=== PATIENT | female | born 1990 | race Caucasian/White ===

== ENCOUNTER 2019-06-10 19:00 | Inpatient (IN) ==
[2019-06-10] MEDS ORDERED: OXYTOCIN 30 UNITS/500 ML BAG IV PRN (19:35)
[2019-06-10] MEDS ORDERED: DINOPROSTONE 10 MG INSERT PV ONE (19:35)
[2019-06-10 20:10] LABS: Hematocrit (blood only) 38.2 % (37-47); Hemoglobin 12.8 g/dL (12.0-16.0); Mean Corpuscular Hemoglobin 30.8 pg (25-34); Mean Corpuscular Volume 91.8 fL (80-100); Mean Platelet Volume 11.1 fL (7.4-10.4); Platelet Count 182 K/uL (130-400); RDW Coefficient of Variation 14.2 % (11.5-14.5); RDW Standard Deviation 46.6 fL (36.4-46.3); Red Blood Count 4.16 M/uL (4.2-5.4); White Blood Count 11.12 K/uL (4.8-10.8)
[2019-06-10 20:14] LABS: Mean Corpuscular Hgb Conc 33.5 g/dL (32-36)
--- NOTE | 2019-06-10 20:38 | Obstetrical Progress Note ---
Date of Service June 10, 2019 Assessment & Plan Admission and Anticipated Discharge Date Admission Date: June 10, 2019 Subjective Met pt and spouse Reviewed PNC FHR; CAT1 Ctx: Absent VE; closed/post.thick /-3 Cervidil inserted in vagina Results & Data ([facility]) Vital Signs (Past 12 Hours) Vital Signs Temp Pulse Resp BP 06/10/19 19:27 36.9 C 06/10/19 19:11 73 18 139/82 06/10/19 19:09 73 139/82
[2019-06-11] MEDS ORDERED: Nursing to Pharmacy Communication ONE (01:21)
[2019-06-11] MEDS: miSOPROStoL 25 MCG TAB PO SCH ×5 (01:26→18:30)
[2019-06-11] MEDS: BUTORPHANOL TARTRATE 1 MG/ML VIAL IV PRN ×2 (01:27→04:59)
[2019-06-11] MEDS ORDERED: miSOPROStoL 25 MCG TAB PO SCH (04:00)
[2019-06-11] MEDS ORDERED: OXYTOCIN 30 UNITS/500 ML BAG IV PRN (10:03)
--- NOTE | 2019-06-11 10:06 | Obstetrical Progress Note ---
Date of Service June 11, 2019 Assessment & Plan Admission and Anticipated Discharge Date Admission Date: June 10, 2019 Physical Exam Genitourinary: Manual OB Exam: + cervical dilation 2 cm, + cervical effacement 80%, + station high and + amniotic fluid clear OB Exam Monitor Tracing: + external FHT monitor used, + external uterine monitor used, + category I and + normal FHT variability EFW 7-7.5 lbs. Will start Oxytocin to augment contractions Epidural planned Results & Data ([facility]) Vital Signs (Past 12 Hours) Vital Signs Temp Pulse Resp BP 06/11/19 09:03 36.5 C 74 20 132/85 06/11/19 07:09 72 127/82 06/11/19 07:00 36.9 C 18 06/11/19 05:14 36.8 C 18 06/11/19 03:30 37.0 C 18 06/11/19 01:30 36.8 C 18 06/10/19 22:22 36.7 C 68 18 130/77
[2019-06-11] MEDS: LACTATED RINGER'S 1,000 ML IV PRN ×4 (10:09→19:17)
[2019-06-11] MEDS ORDERED: ePHEDrine sulfate 50 MG/ML AMP ONE (10:20)
[2019-06-11] MEDS ORDERED: fentaNYL 2MCG/ML ROPIV 1.25MG/ML 100 ML BAG EPI ONE (10:21)
[2019-06-11] MEDS ORDERED: BUPIVACAINE 0.25% 30 ML VIAL ONE ×2 (10:21→15:27)
[2019-06-11] MEDS ORDERED: fentaNYL citrate 100 MCG/2 ML VIAL ONE ×3 (10:21→20:54)
[2019-06-11] MEDS ORDERED: ONDANSETRON INJ 2 MG/ML 2 ML VIAL IV PRN ×2 (12:11→21:35)
[2019-06-11] MEDS ORDERED: NALOXONE HCL 1 MG in SODIUM CHLORIDE 0.9% 1000ML 1,000 ML IV PRN ×2 (12:11→21:35)
[2019-06-11] MEDS ORDERED: ePHEDrine sulfate 50 MG/ML AMP IV PRN ×2 (12:11→21:35)
[2019-06-11] MEDS ORDERED: DiphenhydrAMINE HCL 50 MG/ML VIAL IV PRN ×3 (12:12→21:35)
[2019-06-11] MEDS ORDERED: NALOXONE HCL 0.4 MG/1 ML VIAL/CARP IV PRN ×2 (12:12→21:35)
[2019-06-11] MEDS ORDERED: NALBUPHINE HCL INJ 10 MG/ML AMP IV PRN ×2 (12:12→21:35)
[2019-06-11] MEDS ORDERED: fentaNYL 2MCG/ML ROPIV 1.25MG/ML 100 ML BAG EPI PRN (12:14)
--- NOTE | 2019-06-11 14:08 | Obstetrical Progress Note ---
Date of Service June 11, 2019 Assessment & Plan Admission and Anticipated Discharge Date Admission Date: June 10, 2019 Physical Exam Genitourinary: Manual OB Exam: + cervical dilation 4 cm, + cervical effacement 90% and + station -2 OB Exam Monitor Tracing: + external FHT monitor used, + external uterine monitor used, + category I and + normal FHT variability Results & Data ([facility]) Vital Signs (Past 12 Hours) Vital Signs Temp Pulse Resp BP Pulse Ox 06/11/19 14:02 104 H 100 06/11/19 13:57 93 H 100 06/11/19 13:54 80 117/71 06/11/19 13:52 92 H 100 06/11/19 13:47 97 H 100 06/11/19 13:42 98 H 100 06/11/19 13:38 91 H 119/71 06/11/19 13:37 80 100 06/11/19 13:32 89 100 06/11/19 13:27 95 H 100 06/11/19 13:23 80 113/65 06/11/19 13:22 89 100 06/11/19 13:17 110 H 100 06/11/19 13:12 87 100 06/11/19 13:08 100 H 123/84 06/11/19 13:07 75 100 06/11/19 13:02 106 H 100 06/11/19 12:57 79 100 06/11/19 12:53 36.5 C 82 20 121/79 06/11/19 12:52 88 100 06/11/19 12:47 83 100 06/11/19 12:42 98 H 99 06/11/19 12:39 100 H 125/73 06/11/19 12:37 73 100 06/11/19 12:32 85 100 06/11/19 12:27 91 H 99 06/11/19 12:24 92 H 117/85 06/11/19 12:22 90 100 06/11/19 12:17 92 H 100 06/11/19 12:12 80 99 06/11/19 12:08 86 113/62 06/11/19 12:07 90 100 06/11/19 12:02 83 100 06/11/19 11:57 99 H 100 06/11/19 11:53 93 H 108/64 90 06/11/19 11:52 95 H 100 03/18/20 11:47 90 100 20 11:42 102 H 100 06/11/19 11:37 90 100 06/11/19 11:35 90 120/72 06/11/19 11:32 102 H 100 06/11/19 11:30 93 H 125/71 06/11/19 11:27 84 100 06/11/19 11:25 84 121/68 06/11/19 11:22 87 99 06/11/19 11:20 89 125/69 06/11/19 11:18 75 133/78 06/11/19 11:17 90 99 06/11/19 11:16 84 141/82 H 06/11/19 11:14 80 138/83 06/11/19 11:13 77 138/91 06/11/19 11:12 78 99 06/11/19 11:10 94 H 135/101 H 06/11/19 11:07 85 100 06/11/19 11:02 92 H 99 06/11/19 10:57 91 H 99 06/11/19 10:52 103 H 99 06/11/19 10:50 36.5 C 20 06/11/19 10:47 88 99 06/11/19 10:42 93 H 99 06/11/19 10:37 87 132/90 100 06/11/19 09:03 36.5 C 74 20 132/85 06/11/19 07:09 72 127/82 06/11/19 07:00 36.9 C 18 06/11/19 05:14 36.8 C 18 06/11/19 03:30 37.0 C 18
[2019-06-11] MEDS ORDERED: CEFAZOLIN 2000MG 2,000 MG/15 ML SYR IV SCH (19:45)
--- NOTE | 2019-06-11 19:46 | History & Physical Bridge Note ---
Date of Service June 11, 2019 History & Physical Bridge Note I have examined the patient, reviewed the History & Physical and in the interval since the performance of the History & Physical I have noted the following changes of clinical significance: no changes noted
--- NOTE | 2019-06-11 19:46 | Obstetrical Progress Note ---
Date of Service June 11, 2019 Assessment & Plan Admission and Anticipated Discharge Date Admission Date: June 10, 2019 Physical Exam Physical Exam: Cervix remains at 6 cm/90/0 tachycardia Cat 2 FHT In view of IUGR and non-reassuring FHT will proceed with Primary consents obtained Results & Data ([facility]) Vital Signs (Past 12 Hours) Vital Signs Temp Pulse Resp BP Pulse Ox 06/11/19 19:42 121 H 100 06/11/19 19:38 106 H 141/85 H 06/11/19 19:37 105 H 100 20 19:32 77 100 06/11/19 19:27 87 100 06/11/19 19:23 88 137/76 06/11/19 19:22 97 H 99 06/11/19 19:17 93 H 100 06/11/19 19:15 37.4 C 20 06/11/19 19:12 82 100 06/11/19 19:08 87 140/81 06/11/19 19:07 86 100 06/11/19 19:02 83 100 06/11/19 18:57 79 100 20 18:54 80 137/73 20 18:52 93 H 100 20 18:47 82 100 20 18:42 91 H 100 20 18:39 77 20 131/68 20 18:37 80 100 20 18:32 84 100 20 18:27 89 100 20 18:23 37.4 C 95 H 20 142/80 H 20 18:22 99 H 100 20 18:17 83 100 20 18:12 79 100 20 18:09 85 139/77 20 18:07 88 100 20 18:02 80 100 20 17:57 93 H 100 1820 17:54 87 20 136/77 1820 17:52 87 100 20 17:47 104 H 100 20 17:42 95 H 100 1820 17:40 107 H 131/76 20 17:39 37.8 C H 20 17:37 101 H 100 03/18/20 17:35 97 H 82 L 03/18/20 17:32 87 100 03/18/20 17:27 88 100 03/18/20 17:24 85 134/87 03/18/20 17:22 84 100 03/18/20 17:17 88 100 03/18/20 17:12 84 100 03/18/20 17:08 87 124/70 03/18/20 17:07 87 100 03/18/20 17:02 90 100 03/18/20 16:57 68 100 03/18/20 16:54 80 132/69 03/18/20 16:52 85 100 03/18/20 16:47 82 100 03/18/20 16:43 103 H 20 130/67 03/18/20 16:42 99 H 100 03/18/20 16:40 99 H 92 0318/20 16:37 118 H 100 03/18/20 16:32 88 100 03/18/20 16:27 100 H 98 03/18/20 16:23 96 H 111/63 0318/20 16:22 98 H 100 03/18/20 16:17 86 100 03/18/20 16:12 95 H 100 03/18/20 16:09 37.3 C 20 18/20 16:08 85 109/64 0318/20 16:07 88 99 03/18/20 16:02 99 H 100 18/20 15:57 110 H 100 03/18/20 15:54 118 H 20 109/62 90 03/18/20 15:52 92 H 100 03/18/20 15:47 86 100 03/18/20 15:42 87 99 03/18/20 15:39 80 125/73 03/18/20 15:37 84 100 03/18/20 15:32 84 100 03/18/20 15:27 87 100 03/18/20 15:23 83 124/80 03/18/20 15:22 93 H 99 03/18/20 15:17 88 99 03/18/20 15:12 97 H 100 03/18/20 15:08 85 119/72 03/18/20 15:07 105 H 100 03/18/20 15:02 101 H 100 0318/20 15:00 37.0 C 20 18/20 14:57 85 99 0318/20 14:53 123 H 120/77 0318/20 14:52 81 100 03/18/20 14:47 117 H 100 18/20 14:42 95 H 99 18/20 14:39 94 H 20 120/73 0318/20 14:37 86 99 0318/20 14:32 87 100 18/20 14:27 87 100 06/10/20 14:24 88 128/65 20 14:22 116 H 100 06/10/20 14:17 107 H 99 20 14:12 82 99 20 14:08 81 108/56 L 06/11/19 14:07 82 99 20 14:02 104 H 100 20 14:00 18 20 13:57 93 H 100 20 13:54 80 20 117/71 18/20 13:52 92 H 100 20 13:47 97 H 100 06/10/20 13:42 98 H 100 18/20 13:38 91 H 119/71 18/20 13:37 80 100 18/20 13:32 89 100 18/20 13:27 95 H 100 18/20 13:23 80 113/65 18/20 13:22 89 100 18/20 13:17 110 H 100 18/20 13:12 87 100 18/20 13:08 100 H 123/84 18/20 13:07 75 100 1820 13:02 106 H 100 18/20 12:57 79 100 18/20 12:53 36.5 C 82 20 121/79 0318/20 12:52 88 100 18/20 12:47 83 100 0318/20 12:42 98 H 99 18/20 12:39 100 H 125/73 0318/20 12:37 73 100 18/20 12:32 85 100 0318/20 12:27 91 H 99 0318/20 12:24 92 H 117/85 0318/20 12:22 90 100 18/20 12:17 92 H 100 03/18/20 12:12 80 99 03/18/20 12:08 86 113/62 03/18/20 12:07 90 100 03/18/20 12:02 83 100 /18/20 11:57 99 H 100 /18/20 11:53 93 H 108/64 90 18/20 11:52 95 H 100 /18/20 11:47 90 100 /18/20 11:42 102 H 100 /18/20 11:37 90 100 /18/20 11:35 90 120/72 03/18/20 11:32 102 H 100 /18/20 11:30 93 H 125/71 /18/20 11:27 84 100 /18/20 11:25 84 121/68 /18/20 11:22 87 99 /18/20 11:20 89 125/69 18/20 11:18 75 133/78 18/20 11:17 90 99 18/20 11:16 84 141/82 H 06/10/20 11:14 80 138/83 18/20 11:13 77 138/91 18/20 11:12 78 99 /18/20 11:10 94 H 135/101 H 18/20 11:07 85 100 /18/20 11:02 92 H 99 /18/20 10:57 91 H 99 /18/20 10:52 103 H 99 /18/20 10:50 36.5 C 20 18/20 10:47 88 99 /18/20 10:42 93 H 99 /18/20 10:37 87 132/90 100 18/20 09:03 36.5 C 74 20 132/85
[2019-06-11] MEDS ORDERED: CITRIC ACID/SODIUM CITRATE 15 ML UDC ONE (19:49)
[2019-06-11] MEDS ORDERED: LIDOCAINE/EPINEPHRINE 2% 1:200,000 20 ML SDV ONE (20:19)
[2019-06-11] MEDS ORDERED: MoRPHine SULFATE PF 1 MG/ML 10 ML AMP/VIAL ONE (20:54)
--- NOTE | 2019-06-11 21:19 | Post Operative Brief Note ---
Immediate Post Op Note v1 Date of Surgery June 11, 2019 Pre & Post Diagnosis Operation Date: 06/11/19 19:40 Pre-Op Diagnosis: 1. Nonreassuring heart tones 2. tachycardia 3. Arrest of progress of labor 4. IUGR Post-Op Diagnosis: 1. Nonreassuring heart tones 2. tachycardia 3. Arrest of progress of labor 4. IUGR I identified the patient and participated in the time-out.: Yes Procedure Operation Date: 06/11/19 19:40 Actual Procedures p Section in LD for delivery of live female at 2048(Bilateral) - Adolph Serrano MD Surgeon Adolph Serrano MD Ethanol Operations Manager Dr Hussein Estimated Blood Loss 600 Findings Consistent with Post-Op Diagnosis Drains Swain Catheter (catheter placed in L&D room prior to coming to OR)
--- NOTE | 2019-06-11 21:32 | Anesthesia Procedure Note ---
Date of Service June 11, 2019 Anesthesia Post Epidural Note Vital Signs Vital Signs: Temp Pulse Resp BP Pulse Ox 37.4 C 103 H 20 106/52 L 98 06/11/19 19:15 06/11/19 21:28 06/11/19 20:30 06/11/19 21:23 06/11/19 21:28 Pain Intensity Bilateral Abdomen: Pain Intensity: 6 Notes Mental Status: alert / awake / arousable Patient Amnestic to Procedure: No Nausea / Vomiting: adequately controlled Pain: adequately controlled Airway Patency, RR, SpO2: stable & adequate BP & HR: stable & adequate Hydration State: stable & adequate Neuraxial Anesthesia: was administered and sensory block is resolving Anesthetic Complications: no major complications apparent and Pt Satisfied with anesthetic care Epidural: Removed without complications and With tip intact
[2019-06-11] MEDS ORDERED: PROMETHAZINE HCL 25 MG in SODIUM CHLORIDE 0.9% 50 ML IV PRN (21:35)
[2019-06-11] MEDS ORDERED: NALOXONE HCL 0.08 MG in SYRINGE 1.8 ML IV PRN (21:35)
[2019-06-11] MEDS ORDERED: MoRPHine SULFATE PF 1 MG/ML 10 ML AMP/VIAL INT SPINAL ONE (21:35)
[2019-06-11] MEDS ORDERED: MoRPHine SULFATE 2 MG/ML CARP IV PRN (21:35)
[2019-06-11] MEDS ORDERED: LACTATED RINGER'S 500 ML IV PRN (21:35)
[2019-06-11] MEDS ORDERED: MEPERIDINE HCL 25 MG/ML CARP/VIAL IV PRN (21:35)
[2019-06-11] MEDS ORDERED: METOCLOPRAMIDE HCL 20 MG in SODIUM CHLORIDE 0.9% 50 ML IV PRN (21:35)
[2019-06-11] MEDS ORDERED: HYDROmorphone INJ 0.5 MG/0.5 ML SYR IV PRN (21:35)
[2019-06-11] MEDS ORDERED: MAGNESIUM HYDROXIDE SUSP 30 ML UDC PO PRN (21:38)
[2019-06-11] MEDS ORDERED: SUPERCREAM 0.870% 15 GM JAR EXT PRN (21:38)
[2019-06-11] MEDS ORDERED: HYDROCORTISONE ACETATE 25 MG SUPP PR PRN (21:38)
[2019-06-11] MEDS ORDERED: OXYTOCIN 10 UNITS/ML VIAL ONE ×4 (21:38)
[2019-06-11] MEDS ORDERED: DIPHTHERIA/TETANUS/PERTUSSIS 0.5 ML SYR/VIAL IM ONE (21:38)
[2019-06-11] MEDS ORDERED: LACTATED RINGER'S 1,000 ML IV SCH (21:38)
[2019-06-11] MEDS ORDERED: SENNA 8.6 MG TAB PO PRN (21:38)
[2019-06-11] MEDS ORDERED: BENZOCAINE 20% AER SPR 82.5 GM CAN EXT PRN (21:38)
[2019-06-11] MEDS ORDERED: SODIUM CHLORIDE 0.9% 1000ML 1,000 ML IV SCH (21:45)
[2019-06-11] MEDS ORDERED: DC INTRASPINAL MORPHINE SCH (21:45)
[2019-06-11] MEDS ORDERED: NO NARCOTICS OR SEDATIVES SCH (21:45)
--- NOTE | 2019-06-11 21:58 | Anesthesiology Progress Note ---
Date of Service June 11, 2019 Anesthesia Post Procedure Vital Signs Vital Signs: Temp Pulse Resp BP Pulse Ox 20 21:53 108 H 110/56 L 93 18/20 21:48 106 H 100 18/20 21:43 106 H 18 106/53 L 100 18/20 21:38 101 H 99 18/20 21:33 106 H 20 105/55 L 100 18/20 21:28 103 H 98 20 21:23 37.3 C 100 H 20 106/52 L 98 18/20 20:30 20 18/20 20:25 106 H 99 18/20 20:24 109 H 141/85 H 18/20 20:17 94 H 98 18/20 20:12 101 H 99 18/20 20:08 100 H 129/79 18/20 20:07 90 98 18/20 20:02 105 H 98 18/20 20:00 20 20 19:58 102 H 129/84 06/10/20 19:57 107 H 99 18/20 19:52 95 H 99 18/20 19:47 108 H 98 18/20 19:42 121 H 100 18/20 19:38 106 H 141/85 H 18/20 19:37 105 H 100 18/20 19:32 77 100 18/20 19:31 20 18/20 19:27 87 100 0318/20 19:23 88 137/76 18/20 19:22 97 H 99 18/20 19:17 93 H 100 18/20 19:15 37.4 C 20 18/20 19:12 82 100 0318/20 19:08 87 140/81 18/20 19:07 86 100 0318/20 19:02 83 100 18/20 18:57 79 100 0318/20 18:54 80 137/73 0318/20 18:52 93 H 100 18/20 18:47 82 100 0318/20 18:42 91 H 100 0318/20 18:39 77 20 131/68 18/20 18:37 80 100 0318/20 18:32 84 100 03/18/20 18:27 89 100 03/18/20 18:23 37.4 C 95 H 20 142/80 H 0318/20 18:22 99 H 100 0318/20 18:17 83 100 0318/20 18:12 79 100 0318/20 18:09 85 139/77 0318/20 18:07 88 100 0318/20 18:02 80 100 0318/20 17:57 93 H 100 18/20 17:54 87 20 136/77 0318/20 17:52 87 100 0318/20 17:47 104 H 100 18/20 17:42 95 H 100 0318/20 17:40 107 H 131/76 18/20 17:39 37.8 C H 18/20 17:37 101 H 100 18/20 17:35 97 H 82 L 18/20 17:32 87 100 18/20 17:27 88 100 18/20 17:24 85 134/87 0318/20 17:22 84 100 18/20 17:17 88 100 0318/20 17:12 84 100 18/20 17:08 87 124/70 18/20 17:07 87 100 18/20 17:02 90 100 18/20 16:57 68 100 18/20 16:54 80 132/69 18/20 16:52 85 100 18/20 16:47 82 100 18/20 16:43 103 H 20 130/67 18/20 16:42 99 H 100 0318/20 16:40 99 H 92 18/20 16:37 118 H 100 0318/20 16:32 88 100 0318/20 16:27 100 H 98 0318/20 16:23 96 H 111/63 0318/20 16:22 98 H 100 0318/20 16:17 86 100 0318/20 16:12 95 H 100 18/20 16:09 37.3 C 20 18/20 16:08 85 109/64 0318/20 16:07 88 99 18/20 16:02 99 H 100 03/18/20 15:57 110 H 100 03/18/20 15:54 118 H 20 109/62 90 0318/20 15:52 92 H 100 03/18/20 15:47 86 100 0318/20 15:42 87 99 0318/20 15:39 80 125/73 18/20 15:37 84 100 03/18/20 15:32 84 100 0318/20 15:27 87 100 0318/20 15:23 83 124/80 0318/20 15:22 93 H 99 0318/20 15:17 88 99 0318/20 15:12 97 H 100 0318/20 15:08 85 119/72 03/20 15:07 105 H 100 06/10/20 15:02 101 H 100 20 15:00 37.0 C 20 06/11/19 14:57 85 99 06/10/20 14:53 123 H 120/77 20 14:52 81 100 20 14:47 117 H 100 20 14:42 95 H 99 20 14:39 94 H 20 120/73 18/20 14:37 86 99 18/20 14:32 87 100 18/20 14:27 87 100 06/10/20 14:24 88 128/65 06/10/20 14:22 116 H 100 20 14:17 107 H 99 06/10/20 14:12 82 99 06/10/20 14:08 81 108/56 L 06/11/19 14:07 82 99 20 14:02 104 H 100 18/20 14:00 18 20 13:57 93 H 100 18/20 13:54 80 20 117/71 0318/20 13:52 92 H 100 18/20 13:47 97 H 100 18/20 13:42 98 H 100 0318/20 13:38 91 H 119/71 18/20 13:37 80 100 03/18/20 13:32 89 100 03/18/20 13:27 95 H 100 0318/20 13:23 80 113/65 0318/20 13:22 89 100 03/18/20 13:17 110 H 100 03/18/20 13:12 87 100 03/18/20 13:08 100 H 123/84 03/18/20 13:07 75 100 03/18/20 13:02 106 H 100 0318/20 12:57 79 100 0318/20 12:53 36.5 C 82 20 121/79 0318/20 12:52 88 100 0318/20 12:47 83 100 0318/20 12:42 98 H 99 18/20 12:39 100 H 125/73 0318/20 12:37 73 100 0318/20 12:32 85 100 0318/20 12:27 91 H 99 18/20 12:24 92 H 117/85 18/20 12:22 90 100 0318/20 12:17 92 H 100 06/10/20 12:12 80 99 0318/20 12:08 86 113/62 06/10/20 12:07 90 100 20 12:02 83 100 06/10/20 11:57 99 H 100 18/20 11:53 93 H 108/64 90 0318/20 11:52 95 H 100 18/20 11:47 90 100 18/20 11:42 102 H 100 18/20 11:37 90 100 0318/20 11:35 90 120/72 18/20 11:32 102 H 100 0318/20 11:30 93 H 125/71 18/20 11:27 84 100 18/20 11:25 84 121/68 18/20 11:22 87 99 0318/20 11:20 89 125/69 0318/20 11:18 75 133/78 03/18/20 11:17 90 99 0318/20 11:16 84 141/82 H 18/20 11:14 80 138/83 0318/20 11:13 77 138/91 0318/20 11:12 78 99 0318/20 11:10 94 H 135/101 H 0318/20 11:07 85 100 0318/20 11:02 92 H 99 18/20 10:57 91 H 99 18/20 10:52 103 H 99 03/18/20 10:50 36.5 C 20 06/11/19 10:47 88 99 06/11/19 10:42 93 H 99 06/11/19 10:37 87 132/90 100 06/11/19 09:03 36.5 C 74 20 132/85 06/11/19 07:09 72 127/82 06/11/19 07:00 36.9 C 18 06/11/19 05:14 36.8 C 18 06/11/19 03:30 37.0 C 18 06/11/19 01:30 36.8 C 18 06/10/19 22:22 36.7 C 68 18 130/77 Pain Intensity Bilateral Abdomen: Pain Intensity: 0 Transfer of Care Handoff Completed per policy Notes Mental Status: alert / awake / arousable and participated in evaluation Patient Amnestic to Procedure: Yes Nausea / Vomiting: adequately controlled Pain: adequately controlled Airway Patency, RR, SpO2: stable & adequate BP & HR: stable & adequate Hydration State: stable & adequate Neuraxial Anesthesia: was administered and sensory block is resolving Anesthetic Complications: no major complications apparent
[2019-06-11 22:07] LABS: Base Excess Cord Arterial Bld -2.8 mEq/L (-9-1.8); CO2 Cord Arterial Blood 44 mmHg (39.1-73.5); HCO3 Cord Arterial Blood 23 mmol/L (19.7-28.5); PO2 Cord Arterial Blood 24 mmHg (4.1-31.7); pH Cord Arterial Blood 7.34 (7.1-7.38)
[2019-06-11 22:08] LABS: Oxygen Sat Cord Arterial Blood < 60.0 % (<60)
[2019-06-11 22:10] LABS: Base Excess Cord Venous Blood -1.5 mEq/L (-7.7-1.9); Cord Venous Blood HCO3 23 mmol/L (18.4-26.8); Cord Venous Blood PCO2 38 mmHg (30.4-57.2); Cord Venous Blood PO2 25 mmHg (14.1-43.3); Cord Venous Blood pH 7.39 (7.20-7.44); O2 Saturation Cord Venous Bld < 60.0 % (<68)
[2019-06-11] MEDS ORDERED: SODIUM CHLORIDE 0.65% NA SOLN 45 ML (OCEAN) ONE (22:19)
--- NOTE | 2019-06-11 22:41 | Operative Report (OR) ---
DATE OF OPERATION: 06/11/2019 PREOPERATIVE DIAGNOSES: Intrauterine growth restriction, intolerance to labor, tachycardia and arrest of progress. POSTOPERATIVE DIAGNOSES: Intrauterine growth restriction, intolerance to labor, tachycardia and arrest of progress. PROCEDURE: Primary section, low segment, transverse. SURGEON: Adolph Serrano MD. [employer] AGENT SURGEON: Remy Hussein MD. ANESTHESIA: Epidural with Duramorph. FINDINGS: Live female, Apgars 9 and 9, weight 5 pounds 5 ounces. SPECIMENS: Placenta and cord blood. ESTIMATED BLOOD LOSS: 600 mL. TOTAL FLUIDS: 1000 mL. URINE OUTPUT: 100 mL. CLINICAL HISTORY: The patient is a 28-year-old female, para 0-0-0-0, at 39 weeks and 4 days, admitted for induction of labor yesterday for IUGR. The patient progressed to 6 cm without any further progress. She developed slight maternal temperature along with tachycardia. She was given IV fluids. This continued and a decision was then made due to almost having 20+ hours of ruptured membranes. Consents were signed. Timeout was called and the patient consented and agreed with the procedure. DESCRIPTION OF PROCEDURE: Under satisfactory epidural anesthesia, the patient was tested, prepped and draped in usual sterile fashion. A low Pfannenstiel incision carrying down into the abdominal cavity in successive layers into the peritoneal cavity, pickups with teeth and Metzenbaums were then used to develop a bladder flap. A low segment transverse incision over the lower uterine segment was made. The incision was widened in the AP diameter and nicked. The infant was then delivered from the vertex presentation. The amniotic fluid was clear. After the baby was out, the cord was doubly clamped and cut with delayed cord clamping of approximately 1 minute. Cord blood was obtained and a length of tube was obtained for cord gases. After spontaneous delivery of the placenta, the placenta was examined and looked to be somewhat calcified and was submitted to pathology as a separate specimen. The uterus was then exteriorized. Ring forceps were then placed on both angles in the inferior margin. Uterus was closed in double layer closure with 0 Vicryl suture in a continuous interlocking fashion followed by a second imbricating suture of 0 Vicryl suture. The lower uterine segment was inspected, no active bleeding was noted. The initial sponge, needle and instrument count were found to be correct. The contents of the pelvic and abdominal cavities were then irrigated to clear. The uterus was placed back into the normal anatomical position. The uterus was inspected, no active bleeding was noted. The fascia was reapproximated from both ends using 0 Vicryl suture in a continuous fashion. Subcuticular space was irrigated. Bleeders were cauterized. Subcuticular layer was then closed with 2-0 plain suture and skin was reapproximated with gonzález. Clear urine was noted from the Swain bag. Estimated blood loss 600 mL. Final sponge, needle and instrument count were found to be correct. The patient was then placed supine on a stretcher and taken to recovery room in stable condition. I attest to the content of the Intraoperative Record and any orders documented therein. Any exceptions are noted below. AMANDA
[2019-06-11] MEDS: KETOROLAC 30 MG/ML VIAL IV PRN (23:28)
[2019-06-12] MEDS: OXYTOCIN 30 UNITS in LACTATED RINGER'S 1,000 ML IV SCH ×2 (05:24→13:05)
[2019-06-12] MEDS: KETOROLAC 30 MG/ML VIAL IV PRN ×2 (05:25→12:21)
[2019-06-12] MEDS ORDERED: CITRIC ACID/SODIUM CITRATE 15 ML UDC PO SCH (06:00)
[2019-06-12 07:16] LABS: Basophils # (auto) 0.02 K/uL (0-0.2); Basophils % (auto) 0.1 %; Eosinophils # (auto) 0.07 K/uL (0-0.5); Eosinophils % (auto) 0.5 %; Hemoglobin 11.7 g/dL (12.0-16.0); Immature Granulocytes # (auto) 0.03 K/uL (0.00-0.02); Immature Granulocytes % (auto) 0.2 %; Lymphocytes # (auto) 1.34 K/uL (1.2-3.4); Lymphocytes % (auto) 9.7 %; Mean Corpuscular Hgb Conc 33.4 g/dL (32-36); Mean Corpuscular Volume 92.6 fL (80-100); Mean Platelet Volume 10.9 fL (7.4-10.4); Monocytes # (auto) 0.66 K/uL (0.11-0.59); Monocytes % (auto) 4.8 %; Neutrophils # (auto) 11.67 K/uL (1.4-6.5); Neutrophils % (auto) 84.7 %; Platelet Count 134 K/uL (130-400); RDW Coefficient of Variation 14.5 % (11.5-14.5); RDW Standard Deviation 48.4 fL (36.4-46.3); Red Blood Count 3.78 M/uL (4.2-5.4); White Blood Count 13.79 K/uL (4.8-10.8)
[2019-06-12] MEDS: DOCUSATE SODIUM 100 MG CAP PO SCH ×2 (08:23→20:51)
[2019-06-12] MEDS: PRENATAL VITAMIN 1 TAB PO SCH (08:23)
[2019-06-12] MEDS: FERROUS SULFATE 325 MG TAB PO SCH (08:24)
[2019-06-12] MEDS: SIMETHICONE 80 MG CHEW PO SCH ×4 (08:24→20:51)
--- NOTE | 2019-06-12 08:37 | Obstetrical Progress Note ---
Date of Service June 12, 2019 Assessment & Plan (1) delivery delivered: S/P c/sec day #1 pt doing well continue day #1 care Subjective Ambulation: ambulating normally Voiding: no voiding problems Passing Gas:: Yes Diet Tolerance:: regular diet Lochia:: Small Feeding Type:: breast feeding Review of Systems All systems reviewed & are unremarkable except as noted in HPI & below Physical Exam Constitutional WD/WN, vitals as above well developed and well nourished Eyes PERRL, conjunctivae normal, anicteric sclerae Neck trachea midline, no thyromegaly Respiratory normal respiratory effort, lungs clear to auscultation Auscultation: no crackles, no rales and no wheezes Cardiovascular RRR, no murmur, no edema Gastrointestinal (Abdomen) normal bowel sounds, soft, nontender, no hepatosplenomegaly Uterus is below umbilicus Musculoskeletal no cyanosis or clubbing, extremities motor strength 5/5 Skin no rashes, warm and dry Neurologic patellar DTR's 2+ bilat, sensation intact Psychiatric A+Ox3, euthymic affect Genitourinary normal external appearance Results & Data Vital Signs (Past 12 Hours) Vital Signs Temp Pulse Pulse Resp BP BP Pulse Ox 06/12/19 07:35 36.8 C 82 20 123/82 97 06/12/19 07:00 18 98 06/12/19 06:00 20 98 06/12/19 05:00 18 98 06/12/19 04:30 37.0 C 84 20 122/95 97 06/12/19 04:00 18 98 06/12/19 03:00 16 97 06/12/19 02:30 20 99 06/12/19 00:45 36.9 C 84 18 122/68 98 06/11/19 23:45 36.9 C 96 H 20 124/76 99 06/11/19 23:23 102 H 20 122/70 96 06/11/19 23:18 106 H 96 06/11/19 23:13 106 H 128/71 96 06/11/19 23:08 100 H 97 06/11/19 23:03 101 H 117/68 96 06/11/19 22:58 105 H 96 06/11/19 22:53 104 H 20 124/69 96 06/11/19 22:48 103 H 97 03/18/20 22:43 100 H 116/64 97 20 22:38 102 H 97 20 22:33 99 H 122/60 97 20 22:28 105 H 97 06/11/19 22:23 36.9 C 105 H 20 138/61 97 20 22:18 109 H 96 06/11/19 22:16 103 H 117/58 L 06/11/19 22:13 109 H 18 138/61 97 06/11/19 22:08 111 H 96 06/11/19 22:04 108 H 122/56 L 06/11/19 22:03 108 H 18 122/56 L 96 20 21:58 112 H 96 06/11/19 21:53 112 H 20 110/56 L 96 06/11/19 21:48 106 H 100 20 21:43 106 H 18 106/53 L 100 20 21:38 101 H 99 06/11/19 21:33 106 H 20 105/55 L 100 06/11/19 21:28 103 H 98 06/11/19 21:23 37.3 C 100 H 20 106/52 L 98
[2019-06-12] MEDS ORDERED: NON-FORMULARY MEDICATION (Prenatal 1 TAB) PO SCH (09:00)
[2019-06-12] MEDS ORDERED: MEPERIDINE HCL 50 MG/ML CARP IV PRN (15:35)
[2019-06-12] MEDS ORDERED: DiphenhydrAMINE HCL 50 MG/ML VIAL IV PRN (15:35)
[2019-06-12] MEDS ORDERED: KETOROLAC 30 MG/ML VIAL IV PRN (15:35)
[2019-06-12] MEDS ORDERED: ONDANSETRON INJ 2 MG/ML 2 ML VIAL IV PRN (15:35)
[2019-06-12] MEDS ORDERED: PROMETHAZINE HCL 25 MG in SODIUM CHLORIDE 0.9% 50 ML IV PRN (15:35)
[2019-06-12] MEDS: OXYCODONE/ACETAMINOPHEN 5mg/325mg TAB PO PRN (17:23)
[2019-06-12] MEDS: IBUPROFEN 600 MG TAB PO PRN (17:23)
[2019-06-12] MEDS ORDERED: bisacodyL 5 MG TABEC PO SCH (20:00)
[2019-06-13] MEDS: IBUPROFEN 600 MG TAB PO PRN ×5 (00:01→23:43)
[2019-06-13] MEDS: OXYCODONE/ACETAMINOPHEN 5mg/325mg TAB PO PRN ×5 (00:01→23:43)
[2019-06-13 06:33] LABS: Hematocrit (blood only) 32.3 % (37-47); Hemoglobin 10.5 g/dL (12.0-16.0)
[2019-06-13] MEDS: SIMETHICONE 80 MG CHEW PO SCH ×4 (08:29→21:03)
[2019-06-13] MEDS: DOCUSATE SODIUM 100 MG CAP PO SCH ×2 (08:30→21:03)
[2019-06-13] MEDS: PRENATAL VITAMIN 1 TAB PO SCH (08:30)
[2019-06-13] MEDS: FERROUS SULFATE 325 MG TAB PO SCH (08:30)
--- NOTE | 2019-06-13 10:22 | Surgery Progress Note ---
Date of Service June 13, 2019 Physical Exam Constitutional: WD/WN, vitals as above comfortable abdomen soft and non- tender neg edema neg Gracia's icision clean dry and intact tent d/c in AM Results & Data Vital Signs (Past 12 Hours) Vital Signs Temp Pulse Resp BP Pulse Ox 06/13/19 08:00 36.7 C 82 18 127/88 98 06/13/19 00:30 36.7 C 96 H 18 138/92 99 Laboratory Results Laboratory Results - last 72 hr 06/10/19 06/11/19 06/11/19 19:51 Unknown Unknown WBC 11.12 H RBC 4.16 L Hgb 12.8 Hct 38.2 MCV 91.8 MCH 30.8 MCHC 33.5 RDW Std Deviation 46.6 H RDW Coeff of Елена 14.2 Plt Count 182 MPV 11.1 H Immature Gran % (Auto) Neut % (Auto) Lymph % (Auto) Cloud % (Auto) Eos % (Auto) Baso % (Auto) Immature Gran # (Auto) Neut # (Auto) Lymph # (Auto) Cloud # (Auto) Eos # (Auto) Baso # (Auto) Cord ABG pH 7.34 Cord ABG pCO2 44 Cord ABG pO2 24 Cord ABG HCO3 23 Cord ABG Base Excess -2.8 Cord ABG O2 Sat < 60.0 Cord VBG pH 7.39 Cord VBG pCO2 38 Cord VBG pO2 25 Cord VBG HCO3 23 Cord VBG Base Excess -1.5 Cord VBG O2 Sat < 60.0 Blood Gas Comments WEBSTER WEBSTER 06/12/19 06/13/19 07:03 06:14 WBC 13.79 H RBC 3.78 L Hgb 11.7 L 10.5 L Hct 35.0 L 32.3 L MCV 92.6 MCH 31.0 MCHC 33.4 RDW Std Deviation 48.4 H RDW Coeff of Елена 14.5 Plt Count 134 MPV 10.9 H Immature Gran % (Auto) 0.2 Neut % (Auto) 84.7 Lymph % (Auto) 9.7 Cloud % (Auto) 4.8 Eos % (Auto) 0.5 Baso % (Auto) 0.1 Immature Gran # (Auto) 0.03 H Neut # (Auto) 11.67 H Lymph # (Auto) 1.34 Cloud # (Auto) 0.66 H Eos # (Auto) 0.07 Baso # (Auto) 0.02 Cord ABG pH Cord ABG pCO2 Cord ABG pO2 Cord ABG HCO3 Cord ABG Base Excess Cord ABG O2 Sat Cord VBG pH Cord VBG pCO2 Cord VBG pO2 Cord VBG HCO3 Cord VBG Base Excess Cord VBG O2 Sat Blood Gas Comments
[2019-06-13] MEDS ORDERED: bisacodyL 10 MG SUPP PR PRN (21:21)
[2019-06-14] MEDS: OXYCODONE/ACETAMINOPHEN 5mg/325mg TAB PO PRN ×2 (06:23→11:50)
[2019-06-14] MEDS: IBUPROFEN 600 MG TAB PO PRN ×2 (06:24→11:50)
--- NOTE | 2019-06-14 07:30 | Surgery Progress Note ---
Date of Service June 14, 2019 Subjective doing well passing gas tolerating diet Physical Exam Constitutional: WD/WN, vitals as above comfortable incision clean dry and intact abdomen soft and non-tender no edema neg Gracia's for d/c Results & Data Vital Signs (Past 12 Hours) Vital Signs Temp Pulse Resp BP Pulse Ox 06/13/19 23:25 36.7 C 75 18 121/78 06/13/19 19:30 37.2 C 101 H 18 137/95 98 Laboratory Results 06/10/19 06/11/19 06/11/19 19:51 Unknown Unknown WBC 11.12 H RBC 4.16 L Hgb 12.8 Hct 38.2 MCV 91.8 MCH 30.8 MCHC 33.5 RDW Std Deviation 46.6 H RDW Coeff of Елена 14.2 Plt Count 182 MPV 11.1 H Immature Gran % (Auto) Neut % (Auto) Lymph % (Auto) [place] % (Auto) Eos % (Auto) Baso % (Auto) Immature Gran # (Auto) Neut # (Auto) Lymph # (Auto) [place] # (Auto) Eos # (Auto) Baso # (Auto) Cord ABG pH 7.34 Cord ABG pCO2 44 Cord ABG pO2 24 Cord ABG HCO3 23 Cord ABG Base Excess -2.8 Cord ABG O2 Sat < 60.0 Cord VBG pH 7.39 Cord VBG pCO2 38 Cord VBG pO2 25 Cord VBG HCO3 23 Cord VBG Base Excess -1.5 Cord VBG O2 Sat < 60.0 Blood Gas Comments ELEANOR [facility]BSTER 06/12/19 06/13/19 07:03 06:14 WBC 13.79 H RBC 3.78 L Hgb 11.7 L 10.5 L Hct 35.0 L 32.3 L MCV 92.6 MCH 31.0 MCHC 33.4 RDW Std Deviation 48.4 H RDW Coeff of Елена 14.5 Plt Count 134 MPV 10.9 H Immature Gran % (Auto) 0.2 Neut % (Auto) 84.7 Lymph % (Auto) 9.7 [place] % (Auto) 4.8 Eos % (Auto) 0.5 Baso % (Auto) 0.1 Immature Gran # (Auto) 0.03 H Neut # (Auto) 11.67 H Lymph # (Auto) 1.34 [place] # (Auto) 0.66 H Eos # (Auto) 0.07 Baso # (Auto) 0.02 Cord ABG pH Cord ABG pCO2 Cord ABG pO2 Cord ABG HCO3 Cord ABG Base Excess Cord ABG O2 Sat Cord VBG pH Cord VBG pCO2 Cord VBG pO2 Cord VBG HCO3 Cord VBG Base Excess Cord VBG O2 Sat Blood Gas Comments
[2019-06-14] MEDS: FERROUS SULFATE 325 MG TAB PO SCH (07:58)
[2019-06-14] MEDS: PRENATAL VITAMIN 1 TAB PO SCH (07:58)
[2019-06-14] MEDS: DOCUSATE SODIUM 100 MG CAP PO SCH (07:58)
[2019-06-14] MEDS: SIMETHICONE 80 MG CHEW PO SCH (07:58)
--- NOTE | 2019-06-16 13:15 | Coding Query ---
CODING QUERY To promote full compliance with coding requirements relating to patient care, provider participation is requested in all cases of pai gow manager uncertainty. Please assist us with the question(s) below: Coding Question(s): There is documentation on the 06/11/19 Operative Report of, "She developed slight maternal temperature ". Please clarify below, in your clinical opinion. ( ) this is Pyrexia or Fever of unknown origin during labor ( ) this is Not Pyrexia or Fever of unknown origin during labor ( x ) this is other: Please Specify_suspected chorioamnionitis Physician's Response(s): Thank you Eun Damico Principal Diagnosis: "that condition established after study, to be chiefly responsible for occasioning the admission of the patient to the hospital for care." Co-Existing Principal Diagnosis: "when two or more diagnoses equally meet the criteria for principal diagnosis as determined by the circumstances of admission, diagnostic work up, and/or therapy provided, and the Alphabetic Index, Tabular List, or another coding guideline does not provide sequencing direction, any one of the diagnoses may be sequenced first." "When the physician has documented what appears to be a current diagnosis in the body of the record, but has not included the diagnosis in the final diagnostic statement, the physician should be asked whether the diagnosis should be added." ([facility] 2 QTR90. p3-4) AMANDA
--- NOTE | 2019-06-17 16:58 | Discharge Summary (DS) ---
HOSPITAL COURSE: The patient is a 28-year-old female para 0-0-0 at 39 weeks and 4 days, admitted for induction of labor for IUGR. The patient progressed to 6 cm without any further progress. She developed slight maternal temperature along with tachycardia. She was on IV fluids. Decision was made to do a section due to IUGR intolerance to labor, tachycardia and arrest of progress. The patient had a live female, Apgars were 9 and 9. weight was 5 pounds 5 ounces. Hospital course was unremarkable. The patient was discharged 06/14/2019 in stable condition. Home going instructions were given. Condition on discharge is stable. Regular diet on discharge. Follow up in the office in 1 week for incision check and medications included Percocet and Motrin.
== END 2019-06-14 14:15 | disposition home or self-care (01) | DRG 786 ==
LOC: 4S1 19:00 → 4S2 06-11 23:40